=== PATIENT | female | born 1990 | race Caucasian/White ===

== ENCOUNTER 2021-10-09 10:59 | Outpatient (REF) | payer OTHER, SELFPAY ==
--- NOTE | ~2021-10-09 | XR_ITS ---
EXAMINATION: XR SINUSES CLINICAL INFORMATION: Left sinus pain. COMPARISON: 09/22/2012. TECHNIQUE: 4 FINDINGS: Paranasal sinuses appear clear without air-fluid levels. No fractures are identified. No radiodense foreign bodies. No interval change when compared to 09/22/2012. XR/XR sinus min 3V IMPRESSION: Unremarkable examination.
[2021-10-09 12:06] LABS: MANUAL DIFF FLAG NO
[2021-10-09 12:10] LABS: Basophils Percent Auto 0.6 % (0-2); Eosinophils Absolute Auto 0.1 X10*3/uL (0.0-0.4); Eosinophils Percent Auto 1.7 % (0-4); Hematocrit 39.6 % (37.0-47.0); Hemoglobin 13.3 g/dl (12.0-16.0); Imm Gran Abs Auto 0.01 X10*3/uL (0.00-0.03); Imm Gran Pct Auto 0.2 % (0.0-0.4); Lymphocytes Absolute Auto 1.7 X10*3/uL (1.2-4.9); Lymphocytes Percent Auto 32.7 % (20-40); Mean Corpuscular HGB Conc 33.6 g/dl (31.0-35.0); Mean Corpuscular Hemoglobin 33.3 pg (27.0-33.0); Mean Platelet Volume 9.9 fL (9.4-12.3); Monocytes Absolute Auto 0.4 X10*3/uL (0.1-1.2); Monocytes Percent Auto 7.3 % (2-11); Neutrophils Percent Auto 57.5 % (45-73); Platelet Count 249 X10*3/uL (160-400); Red Cell Distribution Width 11.9 % (11.0-16.0); White Blood Count 5.2 X10*3/uL (4.8-10.8)
[2021-10-09 12:35] LABS: Anion Gap 12 (12-20); Blood Urea Nitrogen 11 mg/dL (9-16); C Reactive Protein 0.09 mg/dL (< or = 0.50); Calcium 10.2 mg/dL (8.4-10.2); Carbon Dioxide 29 mmol/L (22-29); Chloride 101 mmol/L (96-108); Estimated Glomerular Filt Rate > 60; Glucose Random 98 mg/dL (60-115); Potassium 4.2 mmol/L (3.3-5.1); Sodium 138 mmol/L (135-145)
== END 2021-10-09 11:00 | disposition home or self-care (01) ==
LOC: HO.10HDL 10:59
PROVIDERS: Visit Provider Internal Medicine
DX: R51.9 Headache, unspecified (principal)
CPT/HCPCS: 36415; 70220; 80048; 85025; 86140

== ENCOUNTER 2021-11-20 09:23 | Outpatient (REF) | payer OTHER, SELFPAY ==
[2021-11-20 11:34] LABS: C Reactive Protein 0.09 mg/dL (< or = 0.50); Rheumatoid Factor 19.2 IU/mL (<15.0)
[2021-11-20 12:09] LABS: Erythrocyte Sedimentation Rate 5 MM/HR (0-20)
[2021-11-23 13:26] LABS: Proteinase 3 PR3 Antibodies <1.0 AI
[2021-11-23 13:57] LABS: Anti Nuclear Antibody Screen NEGATIVE (NEGATIVE)
== END 2021-11-20 09:24 | disposition home or self-care (01) ==
LOC: HO.HMGCLDS 09:23
PROVIDERS: Visit Provider Internal Medicine
DX: R21 Rash and other nonspecific skin eruption (principal)
CPT/HCPCS: 36415; 85652; 86021; 86038; 86039; 86140; 86431

== ENCOUNTER 2022-03-02 14:33 | Outpatient (REF) | payer OTHER, SELFPAY ==
[2022-03-02 14:47] LABS: MANUAL DIFF FLAG NO
[2022-03-02 15:12] LABS: Basophils Percent Auto 0.6 % (0-2); Eosinophils Absolute Auto 0.1 X10*3/uL (0.0-0.4); Eosinophils Percent Auto 2.2 % (0-4); Hemoglobin 12.4 g/dl (12.0-16.0); Imm Gran Abs Auto 0.01 X10*3/uL (0.00-0.03); Imm Gran Pct Auto 0.2 % (0.0-0.4); Lymphocytes Absolute Auto 1.8 X10*3/uL (1.2-4.9); Lymphocytes Percent Auto 35.6 % (20-40); Mean Corpuscular HGB Conc 33.5 g/dl (31.0-35.0); Mean Corpuscular Hemoglobin 32.8 pg (27.0-33.0); Mean Corpuscular Volume 97.9 fL (80.0-98.0); Mean Platelet Volume 9.5 fL (9.4-12.3); Monocytes Absolute Auto 0.4 X10*3/uL (0.1-1.2); Neutrophils Absolute Auto 2.7 x10*3/uL (2.0-8.3); Neutrophils Percent Auto 54.4 % (45-73); Platelet Count 245 X10*3/uL (160-400); Red Blood Count 3.78 X10*6/uL (4.20-5.50); Red Cell Distribution Width 12.2 % (11.0-16.0)
[2022-03-02 16:00] LABS: Alanine Aminotransferase 10 U/L (0-31); Albumin Level 4.8 g/dL (3.5-5.0); Alkaline Phosphatase 31 U/L (39-117); Anion Gap 13 (12-20); Aspartate Amino Transferase 18 U/L (5-31); Bilirubin Total 1.4 mg/dL (0.0-1.0); Blood Urea Nitrogen 11 mg/dL (9-16); C Reactive Protein 0.06 mg/dL (< or = 0.50); Calcium 9.5 mg/dL (8.4-10.2); Carbon Dioxide 28 mmol/L (22-29); Chloride 101 mmol/L (96-108); Estimated Glomerular Filt Rate > 60; Glucose Random 88 mg/dL (60-115); Potassium 4.2 mmol/L (3.3-5.1); Sodium 138 mmol/L (135-145); Total Protein 7.6 g/dL (6.5-8.0)
[2022-03-02 16:10] LABS: Free T4 (Free Thyroxine) 0.82 ng/dL (0.71-1.85); Thyroid Stimulating Hormone 6.15 uIU/mL (0.32-4.0)
[2022-03-02 16:26] LABS: Folate 14.4 ng/mL (> or = 4.0); Vitamin B12 415 pg/mL (200-900)
[2022-03-04 08:48] LABS: Lyme Abs Screen <0.90 index
[2022-03-04 09:42] LABS: Thyroid Peroxidase Antibodies 47 IU/mL (<9)
[2022-03-04 14:22] LABS: Calcium (PTHI) 9.5 mg/dL (8.6-10.2); PTHI 31 pg/mL (16-77)
== END 2022-03-02 14:34 | disposition home or self-care (01) ==
LOC: HO.LAB 14:33
PROVIDERS: PCP Internal Medicine; Visit Provider Internal Medicine
DX: M25.50 Pain in unspecified joint (principal); R42 Dizziness and giddiness
CPT/HCPCS: 36415; 80053; 82550; 82607; 82746; 83970; 84439; 84443; 85025; 86140; 86376; 86617; 86618

== ENCOUNTER 2022-03-05 11:00 | Outpatient (RCR) | payer OTHER, SELFPAY ==
[2022-02-24 09:55] VITALS: BP 122/78; PULSE 79; O2SAT 97
--- NOTE | 2022-02-24 12:08 | MHC.PT.EP ---
[facility] [place] Office [place] Office [place] Office [address] Onur Buitrago [address] [phone] F: [phone] F: [phone] F: [phone] F: [phone] Physical Therapy Plan of Care Date of Evaluation: Date of Surgery: Diagnosis: This is a 31 yo female presenting to skilled PT with a script for vertigo. Assessment: This is a 31 yo female presenting to skilled PT with a script for vertigo. Patient reports ongoing dizziness since May 2021 (she was in [place] when she felt imbalanced while walking). This doesn't seem to effect her daily life but is described as frustrating and annoying disruption. Symptoms come and go and are described as feeling off balance. She had an MRI of the sinuses which was negative and is awaiting CT scan. She has been to the neurologist as well as the eye doctor so far as well. Denies vomiting, nausea, CABA's. Her symptoms are sporadic, she reports it appears her L side is more effected as well. She is active and enjoys fitness classes. She does have some ringing in the ears, denies neck and back pain but has had some changes to vision that she describes as visual snow. Examination shows normal oculomotor tests except for horizontal saccades, (-) VBI B, and decreased cervical extension AROM (may benefit from further assessment of c-spine). She had 2 beats of nystagmus torsional in R hallpike that may have been nature focusing or nystagmus but I performed a treatment with R eleanor maneuver as a precautionary measure. She demos normal balance scores. 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 I am also recommending a trial of craniosacral tx to see if this is beneficial as well. Frequency and Duration: The patient will be seen 2x/wk for 4wks Short Term Goals: NA Corporate Learning Consultant Goals: I in HEP I in HEP No nystagmus or symptoms in any testing positions No LOB noted and normal scores on balance tests Return to walking, exercise routine without symptoms Treatment Plan: Modalities to reduce pain, spasms and effusion. Manual therapy to restore motion and function. Therapeutic exercise to improve strength and flexibility. Neuromuscular re-education for posture and balance. Therapeutic activities to return to functional activities of daily living. Electronically signed by: Graciela Yao PT Please sign and return to therapist. Thank you for your referral.
--- NOTE | 2022-03-31 11:50 | MHC.PT.DC ---
[facility] [place] Office [place] Office [place] Office [address] Onur Buitrago [address] [phone] F: [phone] F: [phone] F: [phone] F: [phone] Physical Therapy Discharge Report Diagnosis: This is a 31 yo female presenting to skilled PT with a script for vertigo. Date of Surgery: Date of Evaluation: 02/24/22 Date of Discharge: 03/31/22 Treatments to Date: 2 Cancellations to Date: 0 No Shows to Date: 0 Discharge Status: Achieved Goals Improved Function Independent with HEP Discharge Summary: Patient without any nystagmus or dizziness with testing positions. She was dx with low thyroid and has been started on a medication regiment which has improved the general fogginess. She also feels improvement with VOR exercises. She has not had any dizziness or issues for the past 2 weeks. I educated her to continue to let medication take effect. If any changes occur or symptoms increase again, she was instructed to call our office. Normal balance was noted with maximal challenges. Chart was kept open for 30 days and DC. Electronically signed by: Graciela Yao PT Please sign and return to therapist. Thank you for your referral.
== END 2022-03-31 11:50 | disposition home or self-care (01) ==
LOC: HO.PTCHIC 11:00
PROVIDERS: PCP Internal Medicine; Visit Provider Internal Medicine
DX: R42 Dizziness and giddiness (principal)
CPT/HCPCS: 95992; 97112; 97161

== ENCOUNTER 2022-05-19 14:24 | Outpatient (REF) | payer OTHER, SELFPAY ==
[2022-05-19 16:56] LABS: Appearance Urine Clear; Color Urine Yellow; Glucose Urine UA Negative (Negative); Leukocyte Esterase Urine Negative (Negative); Nitrite Urine Negative (Negative); Specific Gravity - Urine <= 1.005 (1.005-1.025); Urine Blood Negative (Negative); Urine Ketones Negative (Negative); Urine Protein Negative (Neg-Trace)
[2022-05-19 17:05] LABS: C Reactive Protein 0.39 mg/dL (< or = 0.50)
[2022-05-19 17:39] LABS: Erythrocyte Sedimentation Rate 4 MM/HR (0-20)
[2022-05-25 15:42] LABS: Anti Nuclear Antibody Pattern Nuclear, Speckled; Anti Nuclear Antibody Screen POSITIVE (NEGATIVE); Anti Nuclear Antibody Titer 1:40 titer
== END 2022-05-19 14:25 | disposition home or self-care (01) ==
LOC: HO.HMGCLDS 14:24
PROVIDERS: PCP Internal Medicine; Visit Provider Internal Medicine
DX: R30.0 Dysuria (principal); M25.50 Pain in unspecified joint
CPT/HCPCS: 36415; 81003; 85652; 86038; 86039; 86140; 87086

== ENCOUNTER 2022-09-09 11:16 | Outpatient (REF) | payer OTHER, SELFPAY ==
[2022-09-09 14:32] LABS: Alanine Aminotransferase 14 U/L (0-31); Albumin Level 4.7 g/dL (3.5-5.0); Alkaline Phosphatase 33 U/L (39-117); Aspartate Amino Transferase 21 U/L (5-31); Bilirubin Direct 0.3 mg/dL (0.0-0.5); Bilirubin Total 1.1 mg/dL (0.0-1.0); Total Protein 7.5 g/dL (6.5-8.0)
[2022-09-09 14:58] LABS: Free T4 (Free Thyroxine) 0.96 ng/dL (0.71-1.85); Vitamin D 25-OH Total 44.2 ng/mL (>30)
== END 2022-09-09 11:17 | disposition home or self-care (01) ==
LOC: HO.HMGCLDS 11:16
PROVIDERS: PCP Internal Medicine; Visit Provider Internal Medicine
DX: E03.9 Hypothyroidism, unspecified (principal)
CPT/HCPCS: 36415; 80076; 82306; 84439; 84443

== ENCOUNTER 2022-09-23 17:49 | Outpatient (REF) | payer OTHER, SELFPAY ==
[2022-09-24 14:09] LABS: Adenovirus F 40/41 Not Detected (Not Detect.); Astrovirus Not Detected (Not Detect.); Campylobacter Not Detected (Not Detect.); Cyclospora cayetanensis Not Detected (Not Detect.); E. coli EAEC Not Detected (Not Detect.); E. coli EPEC Not Detected (Not Detect.); E. coli ETEC Not Detected (Not Detect.); E. coli STEC Not Detected (Not Detect.); Entamoeba histolytica Not Detected (Not Detect.); Giardia lamblia Not Detected (Not Detect.); Norovirus GI/GII Not Detected (Not Detect.); Plesiomonas shigelloides Not Detected (Not Detect.); Rotavirus A Not Detected (Not Detect.); Salmonella Not Detected (Not Detect.); Sapovirus Not Detected (Not Detect.); Shigella sp./EIEC Not Detected (Not Detect.); Vibrio Not Detected (Not Detect.); Vibrio Cholerae Not Detected (Not Detect.); Yersinia enterocolitica Not Detected (Not Detect.)
[2022-09-24 14:28] LABS: Cryptosporidium Detected (Not Detect.)
== END 2022-09-23 17:50 | disposition home or self-care (01) ==
LOC: HO.LNP 17:49
PROVIDERS: Visit Provider Internal Medicine
DX: R19.7 Diarrhea, unspecified (principal)
CPT/HCPCS: 87507

== ENCOUNTER 2022-09-30 18:24 | Outpatient (REF) | payer OTHER, SELFPAY | END 2022-09-30 18:25 | disposition home or self-care (01) | LOC: HO.LNP 18:24 | PROVIDERS: Visit Provider Internal Medicine | DX: Z13.89 Encounter for screening for other disorder (principal) | CPT/HCPCS: 87507 ==

== ENCOUNTER 2022-10-06 16:04 | Outpatient (REF) | payer OTHER, SELFPAY ==
[2022-10-07 13:42] LABS: Campylobacter Not Detected (Not Detect.); Plesiomonas shigelloides Not Detected (Not Detect.); Salmonella Not Detected (Not Detect.)
[2022-10-07 13:43] LABS: Adenovirus F 40/41 Not Detected (Not Detect.); Astrovirus Not Detected (Not Detect.); Cyclospora cayetanensis Not Detected (Not Detect.); E. coli EAEC Not Detected (Not Detect.); E. coli EPEC Not Detected (Not Detect.); E. coli ETEC Not Detected (Not Detect.); E. coli STEC Not Detected (Not Detect.); Entamoeba histolytica Not Detected (Not Detect.); Giardia lamblia Not Detected (Not Detect.); Norovirus GI/GII Not Detected (Not Detect.); Rotavirus A Not Detected (Not Detect.); Sapovirus Not Detected (Not Detect.); Shigella sp./EIEC Not Detected (Not Detect.); Vibrio Not Detected (Not Detect.); Vibrio Cholerae Not Detected (Not Detect.); Yersinia enterocolitica Not Detected (Not Detect.)
== END 2022-10-06 16:05 | disposition home or self-care (01) ==
LOC: HO.LNP 16:04
PROVIDERS: Visit Provider Internal Medicine
DX: R19.7 Diarrhea, unspecified (principal)
CPT/HCPCS: 87507

== ENCOUNTER 2023-02-07 08:00 | Outpatient (RCR) | payer OTHER, SELFPAY ==
--- NOTE | 2023-03-11 11:18 | MHC.PT.DC ---
[facility] [place] Office [place] Office [place] Office [address] [phone] F: [phone] F: [phone] F: [phone] F: [phone] Physical Therapy Discharge Report Diagnosis: This is a 32 yo female presenting to skilled PT with a script for L SIJ pain. Date of Surgery: Date of Evaluation: 01/12/23 Date of Discharge: 03/11/23 Treatments to Date: 4 Cancellations to Date: 0 No Shows to Date: 0 Discharge Status: Discharge Summary: Patient was improving with PT but was still not back to running yet. She called our office and cancelled remaining visits. I kept her chart open for 30 days and then DC'd when she did not call to reschedule. Electronically signed by: Graciela Yao, PT Please sign and return to therapist. Thank you for your referral.
== END 2023-03-11 11:19 | disposition home or self-care (01) ==
LOC: HO.PTCHIC 08:00
PROVIDERS: PCP Internal Medicine; Visit Provider Internal Medicine
DX: M99.04 Segmental and somatic dysfunction of sacral region (principal)
CPT/HCPCS: 97110; 97140; 97161

== ENCOUNTER 2023-02-25 09:27 | Outpatient (REF) | payer OTHER, SELFPAY ==
[2023-02-25 10:33] LABS: MANUAL DIFF FLAG NO
[2023-02-25 10:34] LABS: Eosinophils Absolute Auto 0.1 X10*3/uL (0.0-0.4); Eosinophils Percent Auto 3.2 % (0-4); Hematocrit 36.7 % (37.0-47.0); Hemoglobin 12.4 g/dl (12.0-16.0); Imm Gran Abs Auto 0.01 X10*3/uL (0.00-0.03); Imm Gran Pct Auto 0.2 % (0.0-0.4); Lymphocytes Absolute Auto 1.7 X10*3/uL (1.2-4.9); Lymphocytes Percent Auto 41.9 % (20-40); Mean Corpuscular HGB Conc 33.8 g/dl (31.0-35.0); Mean Corpuscular Hemoglobin 32.9 pg (27.0-33.0); Mean Corpuscular Volume 97.3 fL (80.0-98.0); Mean Platelet Volume 9.7 fL (9.4-12.3); Monocytes Absolute Auto 0.3 X10*3/uL (0.1-1.2); Monocytes Percent Auto 7.8 % (2-11); Neutrophils Absolute Auto 1.9 x10*3/uL (2.0-8.3); Neutrophils Percent Auto 45.9 % (45-73); Platelet Count 247 X10*3/uL (160-400); Red Blood Count 3.77 X10*6/uL (4.20-5.50); Red Cell Distribution Width 11.9 % (11.0-16.0); White Blood Count 4.1 X10*3/uL (4.8-10.8)
[2023-02-25 10:59] LABS: Alanine Aminotransferase 15 U/L (0-31); Albumin Level 4.7 g/dL (3.5-5.0); Alkaline Phosphatase 31 U/L (39-117); Anion Gap 10 (12-20); Aspartate Amino Transferase 21 U/L (5-31); Bilirubin Total 1.2 mg/dL (0.0-1.0); Blood Urea Nitrogen 17 mg/dL (9-16); C Reactive Protein < 0.10 mg/dL (< or = 0.50); Calcium 9.6 mg/dL (8.4-10.2); Carbon Dioxide 29 mmol/L (22-29); Chloride 102 mmol/L (96-108); Estimated Glomerular Filt Rate > 60; Glucose Random 92 mg/dL (60-115); Potassium 3.6 mmol/L (3.3-5.1); Sodium 137 mmol/L (135-145); Total Protein 7.5 g/dL (6.5-8.0)
[2023-02-25 12:23] LABS: Erythrocyte Sedimentation Rate 4 MM/HR (0-20)
[2023-02-25 13:39] LABS: Campylobacter Not Detected (Not Detect.); Plesiomonas shigelloides Not Detected (Not Detect.)
[2023-02-25 13:40] LABS: Adenovirus F 40/41 Not Detected (Not Detect.); Astrovirus Not Detected (Not Detect.); Cryptosporidium Not Detected (Not Detect.); Cyclospora cayetanensis Not Detected (Not Detect.); E. coli EAEC Not Detected (Not Detect.); E. coli EPEC Not Detected (Not Detect.); E. coli ETEC Not Detected (Not Detect.); E. coli STEC Not Detected (Not Detect.); Entamoeba histolytica Not Detected (Not Detect.); Giardia lamblia Not Detected (Not Detect.); Norovirus GI/GII Not Detected (Not Detect.); Rotavirus A Not Detected (Not Detect.); Salmonella Not Detected (Not Detect.); Sapovirus Not Detected (Not Detect.); Shigella sp./EIEC Not Detected (Not Detect.); Vibrio Not Detected (Not Detect.); Vibrio Cholerae Not Detected (Not Detect.)
[2023-02-25 14:33] LABS: Yersinia enterocolitica Detected (Not Detect.)
== END 2023-02-25 09:28 | disposition home or self-care (01) ==
LOC: HO.10HDL 09:27
PROVIDERS: Visit Provider Internal Medicine
DX: R10.9 Unspecified abdominal pain (principal); R19.7 Diarrhea, unspecified
CPT/HCPCS: 36415; 80053; 82550; 85025; 85652; 86140; 87507

== ENCOUNTER 2023-03-16 10:17 | Outpatient (REF) | payer OTHER, SELFPAY ==
[2023-03-16 15:20] LABS: Campylobacter Not Detected (Not Detect.); Plesiomonas shigelloides Not Detected (Not Detect.); Salmonella Not Detected (Not Detect.); Vibrio Not Detected (Not Detect.); Vibrio Cholerae Not Detected (Not Detect.); Yersinia enterocolitica Not Detected (Not Detect.)
[2023-03-16 15:21] LABS: Adenovirus F 40/41 Not Detected (Not Detect.); Astrovirus Not Detected (Not Detect.); Cryptosporidium Not Detected (Not Detect.); Cyclospora cayetanensis Not Detected (Not Detect.); E. coli EAEC Not Detected (Not Detect.); E. coli EPEC Not Detected (Not Detect.); E. coli ETEC Not Detected (Not Detect.); E. coli STEC Not Detected (Not Detect.); Entamoeba histolytica Not Detected (Not Detect.); Giardia lamblia Not Detected (Not Detect.); Rotavirus A Not Detected (Not Detect.); Sapovirus Not Detected (Not Detect.); Shigella sp./EIEC Not Detected (Not Detect.)
[2023-03-16 15:24] LABS: Norovirus GI/GII Detected (Not Detect.)
== END 2023-03-16 10:18 | disposition home or self-care (01) ==
LOC: HO.LNP 10:17
PROVIDERS: Visit Provider Internal Medicine
DX: Z87.19 Personal history of other diseases of the digestive system (principal)
CPT/HCPCS: 87507

== ENCOUNTER 2023-03-29 13:27 | Outpatient (REF) | payer OTHER, SELFPAY ==
[2023-03-29 15:29] LABS: Campylobacter Not Detected (Not Detect.); Cryptosporidium Not Detected (Not Detect.); Cyclospora cayetanensis Not Detected (Not Detect.); E. coli EAEC Not Detected (Not Detect.); E. coli EPEC Not Detected (Not Detect.); E. coli ETEC Not Detected (Not Detect.); E. coli STEC Not Detected (Not Detect.); Entamoeba histolytica Not Detected (Not Detect.); Plesiomonas shigelloides Not Detected (Not Detect.); Salmonella Not Detected (Not Detect.); Shigella sp./EIEC Not Detected (Not Detect.); Vibrio Not Detected (Not Detect.); Vibrio Cholerae Not Detected (Not Detect.); Yersinia enterocolitica Not Detected (Not Detect.)
[2023-03-29 15:30] LABS: Adenovirus F 40/41 Not Detected (Not Detect.); Astrovirus Not Detected (Not Detect.); Giardia lamblia Not Detected (Not Detect.)
[2023-03-29 16:34] LABS: Norovirus GI/GII Detected (Not Detect.); Rotavirus A Not Detected (Not Detect.); Sapovirus Not Detected (Not Detect.)
== END 2023-03-29 13:28 | disposition home or self-care (01) ==
LOC: HO.LNP 13:27
PROVIDERS: Visit Provider Internal Medicine
DX: R19.7 Diarrhea, unspecified (principal)
CPT/HCPCS: 87507

== ENCOUNTER 2023-04-13 08:39 | Outpatient (REF) | payer OTHER, SELFPAY ==
[2023-04-13 10:11] LABS: MANUAL DIFF FLAG NO
[2023-04-13 10:15] LABS: Basophils Percent Auto 0.8 % (0-2); Eosinophils Absolute Auto 0.1 X10*3/uL (0.0-0.4); Eosinophils Percent Auto 2.6 % (0-4); Hematocrit 36.1 % (37.0-47.0); Hemoglobin 12.2 g/dl (12.0-16.0); Imm Gran Abs Auto 0.01 X10*3/uL (0.00-0.03); Imm Gran Pct Auto 0.2 % (0.0-0.4); Mean Corpuscular HGB Conc 33.8 g/dl (31.0-35.0); Mean Corpuscular Hemoglobin 33.3 pg (27.0-33.0); Mean Corpuscular Volume 98.6 fL (80.0-98.0); Mean Platelet Volume 9.9 fL (9.4-12.3); Monocytes Absolute Auto 0.4 X10*3/uL (0.1-1.2); Monocytes Percent Auto 7.5 % (2-11); Neutrophils Absolute Auto 2.4 x10*3/uL (2.0-8.3); Neutrophils Percent Auto 48.9 % (45-73); Platelet Count 234 X10*3/uL (160-400); Red Blood Count 3.66 X10*6/uL (4.20-5.50); Red Cell Distribution Width 12.5 % (11.0-16.0)
[2023-04-13 10:37] LABS: Alanine Aminotransferase 15 U/L (0-31); Albumin Level 4.5 g/dL (3.5-5.0); Alkaline Phosphatase 31 U/L (39-117); Anion Gap 12 (12-20); Aspartate Amino Transferase 21 U/L (5-31); Bilirubin Total 0.9 mg/dL (0.0-1.0); Blood Urea Nitrogen 9 mg/dL (9-16); C Reactive Protein 0.11 mg/dL (< or = 0.50); Calcium 9.4 mg/dL (8.4-10.2); Carbon Dioxide 26 mmol/L (22-29); Chloride 107 mmol/L (96-108); Estimated Glomerular Filt Rate > 60; Glucose Random 98 mg/dL (60-115); Potassium 3.8 mmol/L (3.3-5.1); Sodium 141 mmol/L (135-145); Total Protein 7.3 g/dL (6.5-8.0)
== END 2023-04-13 08:40 | disposition home or self-care (01) ==
LOC: HO.10HDL 08:39
PROVIDERS: Visit Provider Internal Medicine
DX: R10.9 Unspecified abdominal pain (principal); R19.7 Diarrhea, unspecified
CPT/HCPCS: 36415; 80053; 82550; 85025; 86140

== ENCOUNTER 2023-04-15 09:42 | Outpatient (REF) | payer OTHER, SELFPAY ==
[2023-04-15 10:41] LABS: CDiff Gene PCR NEGATIVE (Negative)
== END 2023-04-15 09:43 | disposition home or self-care (01) ==
LOC: HO.LNP 09:42
PROVIDERS: Visit Provider Internal Medicine
DX: R19.7 Diarrhea, unspecified (principal); R10.9 Unspecified abdominal pain
CPT/HCPCS: 87493

== ENCOUNTER 2023-05-05 12:18 | Outpatient (REF) | payer OTHER, SELFPAY ==
--- NOTE | ~2023-05-05 | XR_ITS ---
EXAMINATION: XR SINUSES CLINICAL INFORMATION: Sinusitis COMPARISON: None available. TECHNIQUE: 4 views of the sinuses were obtained. FINDINGS: Paranasal sinuses appear clear without air-fluid levels. No fractures are identified. No radiodense foreign bodies. XR/XR sinus min 3V IMPRESSION: Unremarkable examination.
--- NOTE | ~2023-05-05 | XR_ITS ---
EXAMINATION: XR CHEST CLINICAL INFORMATION: Cough. COMPARISON: None available. TECHNIQUE: 2 views of the chest were obtained. FINDINGS: The lungs are well expanded. No focal consolidation. No pleural effusion. Cardiac silhouette is within normal limits. XR/XR chest 2V IMPRESSION: No acute abnormality.
== END 2023-05-05 12:19 | disposition home or self-care (01) ==
LOC: HO.HMGCX 12:18
PROVIDERS: PCP Internal Medicine; Visit Provider Internal Medicine
DX: R05.9 Cough, unspecified (principal); J32.9 Chronic sinusitis, unspecified
CPT/HCPCS: 70220; 71046

== ENCOUNTER 2023-06-09 08:52 | Emergency (ER) | payer BC, SELFPAY ==
--- NOTE | ~2023-06-09 | CT_ITS ---
EXAMINATION: CT ABDOMEN AND PELVIS WITH CONTRAST CLINICAL INFORMATION: Lower abdominal pain. Diarrhea. COMPARISON: 01/17/2012 TECHNIQUE: Multidetector volumetric images were obtained from the superior aspect of the liver through the pubic symphysis following administration 85 mL of Omnipaque 350 intravenous contrast. Sagittal and coronal reformatted images were obtained on the technologist's workstation. Oral contrast: No This CT examination was performed using dose optimization techniques as appropriate, variously including the following: *Automated exposure control *Adjustment of mA and/or kV according to patient size (this includes techniques or standardized protocols for targeted exams where dose is matched to indication/reason for exam; i.e. extremities or head) *Use of iterative reconstruction technique DLP: 482 mGy-cm FINDINGS: LUNG BASES: The visualized lung bases are unremarkable. LIVER, GALLBLADDER, AND BILIARY TREE: The liver is normal in size, shape, and attenuation. No suspicious hepatic lesion or biliary ductal dilatation is present. The gallbladder is unremarkable with no evidence of radiopaque gallstones, gallbladder wall thickening, or obvious pericholecystic inflammatory changes. PANCREAS: Unremarkable. SPLEEN: Unremarkable. ADRENAL GLANDS: Unremarkable. KIDNEYS AND URETERS: The kidneys are normal in size, shape, and attenuation. No hydronephrosis, hydroureter, or calculi seen. No perinephric stranding. BLADDER: Unremarkable. GASTROINTESTINAL TRACT: Small and large bowel loops are of normal caliber. Moderate fecal retention in the rectosigmoid colon. No small bowel obstruction. ABDOMINAL WALL: No significant hernia is appreciated. LYMPH NODES: No bulky abdominal or pelvic adenopathy. VASCULAR: Normal caliber abdominal aorta. PELVIC VISCERA: Uterus is anteverted. Involuting corpus luteum in the left ovary. OSSEOUS STRUCTURES: No destructive bone lesions. CT/CT abdomen pelvis w IV con IMPRESSION: No acute abnormality in the abdomen or pelvis.
[2023-06-09 09:01] VITALS: BP 139/95; PULSE 80; RESP 14; TEMP 36.9; O2SAT 98; BMI 24.1
--- NOTE | 2023-06-09 09:22 | ED.ABDPAIN ---
HPI - Abdominal Pain General Chief Complaint: Abdominal Pain Stated Complaint: abd pain Time Seen by Provider: 06/09/23 09:20 Source: patient Mode of arrival: ambulatory Limitations: no limitations History of Present Illness HPI narrative: 33 yo female with hx of travel this past year in september where she got a pretty severe GI illness then traveled again in December resulting in yersinia infection requiring 10 days of cipro treatment. Since then she has lower abdominal cramping and intermittent bouts of diarrhea/constipation. Post prandial bloating. No fevers, no weight loss, sweats. She was seeing her PCP but no probiotics, diet changes, elimination diets just referred to GI and no appointment until October. No fam hx of UC or Crohns MD elicited complaint: abdominal pain Pertinent past history: other (travel) Onset (ago): month(s) (6+) Pain Consistency: intermittent Location: periumbilical, RLQ and LLQ Severity: moderate Quality: cramping Radiation: none Migration to: no migration Exacerbating factors: eating Relieving factors: nothing Context: foreign travel Associated symptoms: diarrhea and constipation Related Data Allergies Allergy/AdvReac Type Severity Reaction Status Date / Time No Known Allergies Allergy Unverified 04/24/20 17:12 Review of Systems Review of Systems Constitutional : No Weight loss, No Fever, No Chills ENT/Mouth : No sore throat, No Rhinorrhea Eyes: No Swelling, No Redness Cardiovascular : No Chest Pain, No SOB, NoEdema Respiratory : No Cough, No Sputum, No Wheezing Gastrointestinal : no Nausea, no Vomiting, positive Diarrhea, positive abdominal Pain, No Hematochezia, No Melena, pos constipation Genitourinary : No Dysuria, No Urinary Frequency, No Hematuria, No Urgency Musculoskeletal : No joint pain, No Myalgias, No Joint Swelling Skin : No Skin Lesions, No rash Neuro : No Weakness, No Numbness, No Dizziness, No Headache Psych : No Anxiety/Panic, No Depression Heme/Lymph: No Bruising, No Lymphadenopathy Endocrine : No Polyuria, No Polydipsia All other systems reviewed and are negative. [facility] Past Medical History Attestation statement: The following information was validated with the patient. Medical History Enteritis, Yersinia enterocolitica Surgical History H/O hernia repair Social History Social History (Updated 06/09/23 @ 09:30 by Camille Cardoso DO) Alcohol intake: current Patient Tobacco Use Status: Never used Tobacco Smoked in Last 30 Days: No Use of substances other than those prescribed or required for medical reasons: No Advance Directives: No Patient : No Physical Exam ED Vital Signs: Vital Signs - 24 hr 06/09/23 09:01 06/09/23 10:38 Temperature 98.4 F Pulse Rate 80 60 Respiratory Rate 14 14 Blood Pressure 139/95 H 99/58 L Pulse Oximetry 98 98 Oxygen Delivery Method Room Air Room Air BMI result Body Mass Index 24.1 Appearance: Alert. Oriented X3. No acute distress. Anxious Eyes: Pupils equal, round and reactive to light. ENT: Pharynx normal. Neck: Normal inspection. Neck supple. CVS: Normal heart rate and rhythm. Pulses normal. Respiratory: No respiratory distress. Breath sounds normal. Abdomen: Soft and mild lower abdominal ttp but no rebound or guarding Skin: Skin warm and dry. Normal skin color. Normal skin turgor. Extremities: No lower extremity edema. No calf ttp Neuro: Oriented X 3. No motor deficit. No sensory deficit. Medical Decision Making Medical Decision Making [facility] Narrative: 33 yo female with hx of traveler's dysentery and yersinia who completed cipro x 10 days now with intermittent persistent diarrhea/constipation and post prandial bloating with no fevers, rectal bleeding, weight loss. At this time no fam hx of inflammatory bowel disease. She has a good appetite. Will obtain basic labs, CT scan for colitis/mass. IVF ordered. Differential Diagnosis Differential Diagnoses: The differential diagnosis associated with the presentation includes colitis, IBS, inflammatory bowel disease Admission/Observation Consideration of admission/observation: Escalation of care including admission/observation considered labs and CT scan no acute findings can follow up with GI Lab Data [facility] Lab Attestation statement: I reviewed the patient's lab results. no urinary symptoms doubt UTI 06/09/23 09:21 06/09/23 09:21 Labs: Lab Results 06/09/23 06/09/23 Range/Units 09:21 10:09 WBC 5.2 (4.8-10.8) X10*3/uL RBC 3.88 L (4.20-5.50) X10*6/uL Hgb 12.7 (12.0-16.0) g/dl Hct 37.5 (37.0-47.0) % MCV 96.6 (80.0-98.0) fL MCH 32.7 (27.0-33.0) pg MCHC 33.9 (31.0-35.0) g/dl RDW 12.4 (11.0-16.0) % Plt Count 253 (160-400) X10*3/uL MPV 8.9 L (9.4-12.3) fL Immature Gran % (Auto) 0.2 (0.0-0.4) % Neut % (Auto) 45.0 (45-73) % Lymph % (Auto) 40.6 H (20-40) % [place] % (Auto) 10.1 (2-11) % Eos % (Auto) 3.3 (0-4) % Baso % (Auto) 0.8 (0-2) % Lymph # (Auto) 2.1 (1.2-4.9) X10*3/uL [place] # (Auto) 0.5 (0.1-1.2) X10*3/uL Eos # (Auto) 0.2 (0.0-0.4) X10*3/uL Baso # (Auto) 0.0 (0.0-0.2) X10*3/uL Abs Immat Gran (auto) 0.01 (0.00-0.03) X10*3/uL Absolute Neuts (auto) 2.3 (2.0-8.3) x10*3/uL Absolute Nucleated RBC 0.000 (0.0-0.012) X10*3/uL Nucleated RBC % (auto) 0.0 (0.0-0.2) /100WBC Sodium 138 (135-145) mmol/L Potassium 4.2 (3.3-5.1) mmol/L Chloride 107 (96-108) mmol/L Carbon Dioxide 26 (22-29) mmol/L Anion Gap 9 L (12-20) BUN 11 (9-16) mg/dL Creatinine 0.78 (0.5-1.4) mg/dL Estim Creat Clear Calc 94.2 Estimated GFR > 60 Random Glucose 105 (60-115) mg/dL Calcium 9.6 (8.4-10.2) mg/dL Magnesium 2.1 (1.6-2.6) mg/dL Total Bilirubin 0.6 (0.0-1.0) mg/dL Direct Bilirubin 0.2 (0.0-0.5) mg/dL AST 19 (5-31) U/L ALT 10 (0-31) U/L Alkaline Phosphatase 31 L (39-117) U/L C-Reactive Protein < 0.10 (< or = 0.50) mg/dL Total Protein 7.5 (6.5-8.0) g/dL Albumin 4.4 (3.5-5.0) g/dL Lipase 33 (8-78) U/L Beta HCG, Quant < 2 mIU/mL Urine Color Yellow Urine Appearance Clear Urine pH 6.5 (5.0-9.0) Ur Specific [place] 1.010 (1.005-1.025) Urine Protein Negative (Neg-Trace) mg/dL Urine Glucose (UA) Negative (Negative) mg/dL Urine Ketones Negative (Negative) mg/dL Urine Blood Negative (Negative) Urine Nitrite Negative (Negative) Ur Leukocyte Esterase Small (1+) H (Negative) Urine RBC 0-2 (0-2) /HPF Urine WBC 6-10 H (0-5) /HPF Ur Squamous Epith Cells 3-5 (0-2) /HPF Urine Bacteria 2+ (None Seen) Hyaline Casts 0-2 (0-2) /LPF Independent Interpretation I performed an independent interpretation of an: CT Scan Radiology Impression Discussion of test interpretation with radiology: I have reviewed the radiologist's reading. Independent Historian Clinical information obtained from an independent historian. History obtained from or confirmed by: Parent Medications Administered Discontinued Medications Generic Name Dose Route Start Last Admin Trade Name Freq PRN Reason Stop Dose Admin Iohexol 100 ml 06/09/23 10:32 06/09/23 10:32 Iohexol 350 Mg/Ml 100 Ml Infus..Btl IV 06/09/23 10:33 85 ml ONCE ONE Administration Discharge Plan Discharge Clinical Impression: Abdominal pain Qualifiers: Abdominal location: lower abdomen, unspecified Qualified Code(s): R10.30 - Lower abdominal pain, unspecified Patient Disposition: Home, Self-Care Instructions: Abdominal Pain (ED) Additional Instructions: keep a food journal and monitor what triggers your symptoms. you can start eliminating from your diet to see if that helps then slowly adding it back in. return for worsening pain, fevers, vomiting, black or bloody stools. take a probiotic resolving small L ovarian cyst Referrals: Arielle Benjamin MD [Physician] - (GI doctor - can follow up and call office pending your referral) Stand Alone Forms: Work/School Release
[2023-06-09 09:27] LABS: MANUAL DIFF FLAG NO
[2023-06-09 09:28] LABS: Basophils Percent Auto 0.8 % (0-2); Eosinophils Absolute Auto 0.2 X10*3/uL (0.0-0.4); Eosinophils Percent Auto 3.3 % (0-4); Hematocrit 37.5 % (37.0-47.0); Hemoglobin 12.7 g/dl (12.0-16.0); Imm Gran Abs Auto 0.01 X10*3/uL (0.00-0.03); Imm Gran Pct Auto 0.2 % (0.0-0.4); Lymphocytes Absolute Auto 2.1 X10*3/uL (1.2-4.9); Lymphocytes Percent Auto 40.6 % (20-40); Mean Corpuscular HGB Conc 33.9 g/dl (31.0-35.0); Mean Corpuscular Hemoglobin 32.7 pg (27.0-33.0); Mean Corpuscular Volume 96.6 fL (80.0-98.0); Mean Platelet Volume 8.9 fL (9.4-12.3); Monocytes Absolute Auto 0.5 X10*3/uL (0.1-1.2); Monocytes Percent Auto 10.1 % (2-11); Neutrophils Absolute Auto 2.3 x10*3/uL (2.0-8.3); Platelet Count 253 X10*3/uL (160-400); Red Blood Count 3.88 X10*6/uL (4.20-5.50); Red Cell Distribution Width 12.4 % (11.0-16.0); White Blood Count 5.2 X10*3/uL (4.8-10.8)
[2023-06-09 09:42] LABS: Alanine Aminotransferase 10 U/L (0-31); Albumin Level 4.4 g/dL (3.5-5.0); Alkaline Phosphatase 31 U/L (39-117); Anion Gap 9 (12-20); Aspartate Amino Transferase 19 U/L (5-31); Bilirubin Direct 0.2 mg/dL (0.0-0.5); Bilirubin Total 0.6 mg/dL (0.0-1.0); Blood Urea Nitrogen 11 mg/dL (9-16); C Reactive Protein < 0.10 mg/dL (< or = 0.50); Calcium 9.6 mg/dL (8.4-10.2); Carbon Dioxide 26 mmol/L (22-29); Chloride 107 mmol/L (96-108); Creatinine Clr Calc Pharmacy 94.2; Estimated Glomerular Filt Rate > 60; Glucose Random 105 mg/dL (60-115); Lipase 33 U/L (8-78); Magnesium 2.1 mg/dL (1.6-2.6); Potassium 4.2 mmol/L (3.3-5.1); Sodium 138 mmol/L (135-145); Total Protein 7.5 g/dL (6.5-8.0)
[2023-06-09 09:49] LABS: HCG Quantitative < 2 mIU/mL
[2023-06-09 10:15] LABS: Appearance Urine Clear; Color Urine Yellow; Glucose Urine UA Negative (Negative); Leukocyte Esterase Urine Small (1+) (Negative); Nitrite Urine Negative (Negative); PH 6.5 (5.0-9.0); UMIC TRIGGER UACC YES; Urine Blood Negative (Negative); Urine Ketones Negative (Negative); Urine Protein Negative (Neg-Trace)
[2023-06-09 10:18] LABS: Bacteria Urine 2+ (None Seen); Hyaline Casts Urine 0-2 /LPF (0-2); RBC Urine 0-2 /HPF (0-2); UACC Culture Trigger YES
[2023-06-09] MEDS: iohexoL 350 MG/ML 100 ML INFUS..BTL IV (10:32)
[2023-06-09 10:38] VITALS: BP 99/58; PULSE 60; RESP 14; O2SAT 98
== END 2023-06-09 11:52 | disposition home or self-care (01) ==
PROVIDERS: Emergency Provider Emergency Medicine; PCP Internal Medicine
DX: R10.31 Right lower quadrant pain (principal); R10.32 Left lower quadrant pain; K59.00 Constipation, unspecified; Z79.899 Other long term (current) drug therapy
CPT/HCPCS: 36415; 74177; 80048; 80076; 81001; 83690; 83735; 84702; 85025; 86140; 87086; 99284; Q9967

== ENCOUNTER 2023-10-11 08:19 | Outpatient (AMB) | payer BC, SELFPAY ==
--- NOTE | 2023-10-11 08:25 | A.OFFVIS_ITS ---
Intake Vital Signs 10/11/23 08:26 Height 5 ft 6 in Weight 150 lb BMI 24.2 BP 111/65 Blood Pressure Location Lt brachial Position Sitting Pulse 63 Intake Visit Reasons: Abdominal labs + Norovirus Intake Note: Carlita presets in the office as a new patient for abnormal labs and norovirus. CC: She states that she went to [place] where she got a protozoa - she got another food bacteria 6 months after that. She states that she had labs positive for norovirus. She states that she went to the ED 2 months after because she felt funny. Allergies No Known Allergies Allergy (Unverified 10/11/23 08:28) HPI Abdominal labs + Norovirus HPI Details 33-year-old female with past medical his tory of norovirus, is here today for initial consultation. Patient states that she went on a golf tournament to [place] last summer and when she got back home she had Protozoa infection. Couple months later she had norovirus and was seen in the ER. Patient experienced diarrhea. She continues to have loose stools, denies any fever or chills. Patient reports that she has postprandial loose stools, however feels like she is constipated. Patient denies melena, hematochezia, unintentional weight loss or ribbon like stools. Patient denies any dyspepsia, dysphagia or odynophagia. Patient denies any issues with anesthesia in the past. No history of sleep apnea. Not on any anticoagulation medications. Patient denies any fever or chills. Denies any mucus in her stool. [facility] Medical History Enteritis, Yersinia enterocolitica Surgical History H/O hernia repair Family History (Updated 10/11/23 @ 08:28 by REDDY Marquez) Maternal Grandmother Colon cancer Paternal Grandfather Colon polyp Social History Alcohol intake: current Patient Tobacco Use Status: Never used Tobacco Review of Systems Const Denies weight gain and Denies weight loss ENT Reports no additional complaints, Denies dysphagia and Denies odynophagia Card Reports no additional complaints Resp Reports no additional complaints GI Denies abdominal pain, Denies belching, Denies melena, Denies bloating, Reports constipation, Denies dysphagia, Denies excessive flatus, Denies dyspepsia, Denies heartburn, Denies diarrhea, Reports loose stools, Denies nausea, Denies odynophagia and Denies vomiting Reports no additional complaints Musc Reports no additional complaints Neuro Reports no additional complaints Psych Reports no additional complaints Endo Reports no additional complaints Physical Exam Vital Signs: Last Vital Signs Pulse 63 10/11/23 08:26 BP 111/65 10/11/23 08:26 BMI result Body Mass Index 24.2 Const General: healthy appearing, no acute distress and well developed Nutritional Appearance: well nourished Orientation/consciousness: patient oriented x3 Resp Effort & Inspection: normal respiratory effort, able to speak in complete sentences, no tracheal deviation and symmetric chest movement Auscultation: clear to auscultation bilaterally Cardio Rate: regular rate GI Inspection: Yes normal to inspection and No distended Palpation (GI): Soft to palpation, not firm, nontender and No hepatosplenomegaly present Auscultation: normal bowel sounds General: Yes no CVA tenderness Back/Spine/Pelvis Back: no CVA tenderness Skin General skin exam: elasticity normal, turgor normal and dry skin Neuro General: patient oriented x3 Psych Appearance: grossly normal Mental Status: mental status grossly normal Assessment & Plan Assessment & Plan (1) Diarrhea: Code(s): R19.7 - Diarrhea, unspecified Qualifiers: Diarrhea type: functional diarrhea Qualified Code(s): K59.1 - Functional diarrhea (2) Postprandial abdominal bloating: Code(s): R14.0 - Abdominal distension (gaseous) Plan Will send patient to to check fecal calprotectin, CRP. Will check vitamin-D, B12, folate, thyroid study. Patient is taking thyroid supplement. Patient will be sent for colonoscopy. Patient will start taking Citrucel daily and senna in the evening. I will see patient after the procedure, sooner on as needed basis. Patient is agreeable to this plan and verbalizes understanding of instructions. She was given the opportunity to ask questions and all questions answered. Thank you for allowing me to participate in her care Orders: Orders C Reactive Protein Today K58.9 - Irritable bowel syndrome without diarrhea Vitamin D 25-OH (D2 and D3) Today E55.9 - Vitamin D deficiency, unspecified Vitamin B12 and Folate Today R19.7 - Diarrhea, unspecified Calprotectin, Fecal Today R15.9 - Full incontinence of feces TSH reflex Free T4 Today K59.00 - Constipation, unspecified Medications: New sennosides (Senokot) 17.2 mg (2 x 8.6 mg) PO DAILY 180 tabs 3RF K59.04 - Chronic idiopathic constipation bisacodyl (Dulcolax (bisacodyl)) take 4 tabs at noon the day before your colonoscopy 20 mg (4 x 5 mg) PO ONCE 1 day 4 tabs 0RF Z12.11 - Encounter for screening for malignant neoplasm of colon polyethylene glycol 3350 (Miralax) As directed by gastroenterology department at [facility] 238 grams PO ONCE 238 grams 0RF Z12.11 - Encounter for screening for malignant neoplasm of colon methylcellulose (laxative) (Citrucel) 500 mg PO DAILY 30 tabs 2RF K59.00 - Constipation, unspecified Coding Level of Care Code New Pt Level 4 (82293) Diagnoses Functional diarrhea K59.1 Diarrhea type: functional diarrhea Postprandial abdominal bloating R14.0 Time Spent (min) 45 Comment 30 minutes spent with patient and 15 minutes spent reviewing her records
[2023-10-11 08:26] VITALS: BP 111/65; PULSE 63; BMI 24.2
== END 2023-10-11 09:24 | disposition home or self-care (01) ==
PROVIDERS: PCP Internal Medicine; Visit Provider Nurse Practitioner Family
DX: K59.1 Functional diarrhea (principal); R14.0 Abdominal distension (gaseous)
CPT/HCPCS: 99204

== ENCOUNTER → 2023-10-11 08:19 | Outpatient (BNVA) | payer BC, SELFPAY | PROVIDERS: PCP Internal Medicine; Visit Provider Nurse Practitioner Family ==

== ENCOUNTER 2023-10-17 13:51 | Outpatient (REF) | payer BC, SELFPAY ==
[2023-10-17 16:47] LABS: C Reactive Protein 0.11 mg/dL (< or = 0.50)
[2023-10-17 17:04] LABS: TSH reflex Free T4 3.03 uIU/mL (0.32-4.0)
[2023-10-17 17:12] LABS: Folate 7.1 ng/mL (> or = 4.0); Vitamin B12 363 pg/mL (200-900)
[2023-10-22 15:23] LABS: Vitamin D 25-OH, D2 <4 ng/mL; Vitamin D 25-OH, D3 34 ng/mL; Vitamin D 25-OH, Total 34 ng/mL (30-100)
== END 2023-10-17 13:52 | disposition home or self-care (01) ==
LOC: HO.HMGCLDS 13:51
PROVIDERS: PCP Internal Medicine; Visit Provider Nurse Practitioner Family
DX: K58.9 Irritable bowel syndrome, unspecified (principal); R19.7 Diarrhea, unspecified; E55.9 Vitamin D deficiency, unspecified; K59.00 Constipation, unspecified
CPT/HCPCS: 36415; 82306; 82607; 82746; 84443; 86140

== ENCOUNTER 2024-08-13 08:56 | Day surgery (SDC) | payer BC, SELFPAY ==
[2024-08-09 12:49] VITALS: BMI 24.2
--- NOTE | 2024-08-10 11:42 | HO.ANESPROP2 ---
Documented by User: Claudine Hatch NP 08/10/24 11:42 HPI - Anesthesia Eval Consult details Narrative: 34yo F for Colonoscopy [facility] Past Medical History Medical History (Updated 08/09/24 @ 12:50 by Luna Parra RN) Hypothyroid Enteritis, Yersinia enterocolitica Family History Family History (Updated 10/11/23 @ 08:28 by REDDY Marquez) Maternal Grandmother Colon cancer Paternal Grandfather Colon polyp Surgical History Surgical History (Updated 08/13/24 @ 09:41 by Kim Ortega RN) H/O hernia repair Social History Social History Alcohol intake: current Patient Tobacco Use Status: Never used Tobacco Advance Directives: No Advance Directives Information Provided: Yes Meds Allergies Allergy/AdvReac Type Severity Reaction Status Date / Time No Known Allergies Allergy Verified 08/13/24 09:41 Home Medications ?Medication ?Instructions ?Recorded ?Confirmed ?Last Taken ?Type No Known Home Meds 08/13/24 08/13/24 Unknown History Exam Height,Weight and Vital Signs: Height 5 ft 6 in Weight 68.039 kg Assessment and Plan Assessment Anesthesia Assessment: Chart Reviewed Documented by User: Sulema Vanegas MD 08/13/24 09:46 [facility] Past Medical History Medical History (Updated 08/09/24 @ 12:50 by Luna Parra RN) Hypothyroid Enteritis, Yersinia enterocolitica Family History Family History (Updated 10/11/23 @ 08:28 by REDDY Marquez) Maternal Grandmother Colon cancer Paternal Grandfather Colon polyp Family history of problems with anesthesia: No Surgical History Surgical History (Updated 08/13/24 @ 09:41 by Kim Ortega RN) H/O hernia repair History of Problems with Anesthesia: No Social History Social History Alcohol intake: current Patient Tobacco Use Status: Never used Tobacco Advance Directives: No Advance Directives Information Provided: Yes Meds Allergies Allergy/AdvReac Type Severity Reaction Status Date / Time No Known Allergies Allergy Verified 08/13/24 09:41 Home Medications ?Medication ?Instructions ?Recorded ?Confirmed ?Last Taken ?Type No Known Home Meds 08/13/24 08/13/24 Unknown History Exam Airway Mallampati Class: II TM Dist: >3cm Neck ROM: Full Heart: rrr Lungs: cta Assessment and Plan Assessment Anesthesia Assessment: Anesthesia Plan Discussed Final Anesthetic Review Family History of Problems with Anesthesia: No History of Problems with Anesthesia: No NPO: Yes ASA Class: II Final Preanesthetic Review: No Changes in Pt Med Stat, Meds/Allgs Chart Reviewed and Consent Obtained/Reviewed Patient Risk: Low Procedure Risk: Low Anesthetic Plan Anesthetic Plan: MAC: Disposition: Standard PACU
[2024-08-13 09:52] LABS: UPreg QC Valid YES; Urine Pregnancy NEGATIVE (NEGATIVE)
[2024-08-13 10:00] VITALS: BP 119/71; PULSE 71; RESP 16; TEMP 37.1; O2SAT 99; BMI 24.2
[2024-08-13] MEDS: Lactated Ringers 1,000 ML 100 ML IVCONT (10:10)
--- NOTE | 2024-08-13 10:45 | MHC.SHP ---
Pre-Procedural Eval Section A - 24 Hr Update-Section A only Date of Service: 08/13/24 The patient is an INPATIENT: No The patient has been examined within 24 hours of the surgical procedure. The History & Physical has been completed within 30 days and I have reviewed it.: No Section B - Complete if H&P > 30 days Chief Complaint: Chronic diarrhea Relevant Family History (Specify if Yes): Yes Relevant Social History: None Present Medications: see Short Stay Collaborative assessment Medical History: Significant History (Enteritis, Yersinia enterocolitica, hypothyroidism) History of Previous Operations: Relevant previous surgery/procedure and date(s) (History of hernia repair) Allergies: Allergies Allergy/AdvReac Type Severity Reaction Status Date / Time No Known Allergies Allergy Verified 08/13/24 09:41 Review of Systems Sugical H&P ROS: Negative: Constitution, Cardiovascular, Respiratory and Gastrointestinal Exam Surgical H&P Exam: Normal: Heart, Normal: Lungs, Normal: Extremities and Normal: Abdomen Plan Diagnosis/Plan: Unchanged I have reviewed the history and physical and performed a pertinent physical examination on my patient. No changes have occurred unless specified. Time Spent With Patient Time: Total time managing care of this patient today ____ minutes.
--- NOTE | 2024-08-13 11:22 | HO.OPN-COLON ---
Colonoscopy Operative Note Operative Note Date of Service: 08/13/24 Narrative: COLONOSCOPY TILL CECUM WITH BIOPSIES Pre-op diagnosis: Chronic diarrhea, family history of colon cancer (maternal GM in her early 70's and polyps (Mom). Post-op diagnosis:? Diverticulosis. Endoscopist:? Apollo Phipps MD Anesthesia:?MAC Consent: Indications for the procedure and potential complications of bleeding, perforation, reaction to medications and missed diagnosis were discussed with the patient and informed consent was obtained. Instrument: Olympus PCF H 190 L variable stiffness pediatric colonoscope Monitoring: Vital signs and clinical assessment, intermittent blood pressure monitoring, continuous EKG monitoring, Pulse oximetry and Carbon Dioxide monitoring were done throughout the procedure. Please see anesthesia flowsheet. Colon withdrawl time was 15 minutes. Procedure: The patient was placed in the left lateral decubitis position and pre-procedure medications were administered. After a digital rectal examination of the ano-rectum, the video colonoscope was inserted into the rectum and advanced through the colon to the cecum. The colonoscope was slowly withdrawn in a retrograde panoramic fashion and the colon mucosa was carefully examined including a retroflexed view of the rectum. Findings and interventions are described below. Procedure Difficulty: without difficulty Findings: Terminal Ileum: Not evaluated Cecum: Normal Ascending Colon: Normal Transverse Colon: Normal Descending Colon: Normal Sigmoid Colon: Moderate diverticulosis Rectum: Normal Ano-rectum: Normal Colon preparation: Good after copious irrigation. [place] Bowel Preparation Scale Right colon; 2 Transverse colon: 2 Left colon; 2 (0 = Unprepared colon segment with mucosa not seen due to solid stool that cannot be cleared. 1 = Portion of mucosa of the colon segment seen, but other areas of the colon segment not well seen due to staining, residual stool and/or opaque liquid. 2 = Minor amount of residual staining, small fragments of stool and/or opaque liquid, but mucosa of colon segment seen well. 3 = Entire mucosa of colon segment seen well with no residual staining, small fragments of stool or opaque liquid) Impression and Post Procedure Diagnosis: Colonoscopy Findings: No polyps were detected Moderate diverticulosis seen in the sigmoid colon Random biopsies were obtained from right and left colon to check for microscopic colitis. Plan: Pt has a FU appointment on 08/24/24 with Alice Guzmán NP Repeat Colonoscopy in 10 years if colon biopsies are normal. Above findings were reviewed with the patient and relevant handouts were given and the discharge area. Patient reports her diarrhea has improved.
[2024-08-13 11:23] VITALS: BP 96/56; PULSE 57; RESP 16; TEMP 36.7; O2SAT 99
[2024-08-13 11:40] VITALS: BP 109/68; PULSE 57; RESP 16; TEMP 36.4; O2SAT 99
== END 2024-08-13 11:54 | disposition home or self-care (01) ==
PROVIDERS: Nurse Practitioner; PCP Internal Medicine; Visit Provider Internal Medicine Gastroenterology
PROC: 0DJD8ZZ Inspection of Lower Intestinal Tract, Via Natural or Artificial Opening Endoscopic (ICD-10-PCS; CPT 45378; principal; 2024-08-13 11:10)
DX: K57.30 Diverticulosis of large intestine without perforation or abscess without bleeding (principal); K59.1 Functional diarrhea; Z83.719 Family history of colon polyps, unspecified
CPT/HCPCS: 45380; 81025; 88305; J2003; J2704

== ENCOUNTER 2024-08-24 12:15 | Outpatient (AMB) | payer BC, SELFPAY ==
[2024-08-24 12:17] VITALS: BP 112/70; PULSE 62; O2SAT 99; BMI 24.8
--- NOTE | 2024-08-24 12:17 | A.OFFVIS_ITS ---
Vital Signs 08/24/24 12:17 Height 5 ft 6 in Weight 153 lb 7.068 oz BMI 24.8 BP 112/70 Blood Pressure Location Rt brachial Position Sitting Pulse 62 Pulse Source Pulse Oximeter Pulse Oximetry (%) 99 Oxygen Delivery Method Room Air Intake Visit Reasons: s/p colon Intake Note: ESTABLISHED PATIENT Reason; s/p FUV. Req by surgeon. Changes/concerns? No significant concerns per pt. Allergies No Known Allergies Allergy (Verified 08/24/24 12:17) HPI HPI s/p colon: Details: LAST VISIT: Diarrhea Postprandial abdominal bloating Plan Will send patient to to check fecal calprotectin, CRP. Will check vitamin-D, B12, folate, thyroid study. Patient is taking thyroid supplement. Patient will be sent for colonoscopy. Patient will start taking Citrucel daily and senna in the evening. I will see patient after the procedure, sooner on as needed basis. Patient is agreeable to this plan and verbalizes understanding of instructions. She was given the opportunity to ask questions and all questions answered. ? Thank you for allowing me to participate in her care Orders Orders C Reactive Protein Today K58.9 Vitamin D 25-OH (D2 and D3) Today E55.9 Vitamin B12 and Folate Today R19.7 Calprotectin, Fecal Today R15.9 TSH reflex Free T4 Today K59.00 Medications New sennosides (Senokot) 17.2 mg (2 x 8.6 mg) PO DAILY 180 tabs 3RF K59.04 bisacodyl (Dulcolax (bisacodyl)) take 4 tabs at noon the day before your colonoscopy 20 mg (4 x 5 mg) PO ONCE 1 day 4 tabs 0RF Z12.11 polyethylene glycol 3350 (Miralax) As directed by gastroenterology department at [facility] 238 grams PO ONCE 238 grams 0RF Z12.11 methylcellulose (laxative) (Citrucel) 500 mg PO DAILY 30 tabs 2RF K59.00 COLONOSCOPY Findings: Terminal Ileum: Not evaluated Cecum: Normal Ascending Colon: Normal Transverse Colon: Normal Descending Colon: Normal Sigmoid Colon: Moderate diverticulosis Rectum: Normal Ano-rectum: Normal Colon preparation: Good after copious irrigation. [place] Bowel Preparation Scale Right colon; 2 Transverse colon: 2 Left colon; 2 (0 = Unprepared colon segment with mucosa not seen due to solid stool that cannot be cleared. 1 = Portion of mucosa of the colon segment seen, but other areas of the colon segment not well seen due to staining, residual stool and/or opaque liquid. 2 = Minor amount of residual staining, small fragments of stool and/or opaque liquid, but mucosa of colon segment seen well. 3 = Entire mucosa of colon segment seen well with no residual staining, small fragments of stool or opaque liquid) Impression and Post Procedure Diagnosis: Colonoscopy Findings: No polyps were detected Moderate diverticulosis seen in the sigmoid colon Random biopsies were obtained from right and left colon to check for microscopic colitis. Plan: Repeat Colonoscopy in 10 years if colon biopsies are normal. Above findings were reviewed with the patient and relevant handouts were given and the discharge area. Patient reports her diarrhea has improved. PATHOLOGY RESULTS Diagnosis A. Colon, right, biopsy: Colonic mucosa with prominent lymphoid aggregates; negative for microscopic colitis. B. Colon, left, biopsy: Colonic mucosa with prominent lymphoid aggregate; negative for microscopic colitis TODAY'S VISIT Patient is here today for follow-up and to discuss colonoscopy results. Patient denies any ill effects from the prep, anesthesia or procedure itself. Patient reports that she has been feeling well since last visit. Patient changed her diet no longer has postprandial loose stools. Patient stopped eating spicy food and Kimchi. Lab results as well as colonoscopy and biopsy results discussed with patient. Patient is taking pre and probiotics daily. Denies melena, hematochezia, unintentional weight loss or ribbon like stools. Patient denies dyspepsia, dysphagia or odynophagia. Patient denies any GI concerning symptoms today. [facility] Medical History (Updated 08/24/24 @ 13:46 by Mellissa Guzmán [employer]-) Diverticulosis Hypothyroid Enteritis, Yersinia enterocolitica Surgical History H/O hernia repair Family History Maternal Grandmother Colon cancer Paternal Grandfather Colon polyp Social History Are you a primary doggy daycare activities director to a significant other at home: No Do you presently have visiting nurse or other home services: No Alcohol intake: current Alcohol intake frequency: a few times a month Patient Tobacco Use Status: Never used Tobacco Physical Exam Vital Signs: Last Vital Signs Pulse 62 08/24/24 12:17 BP 112/70 08/24/24 12:17 Pulse Ox 99 08/24/24 12:17 Oxygen Delivery Method Room Air 08/24/24 12:17 BMI result Body Mass Index 24.8 Assessment & Plan Assessment & Plan (1) Diarrhea: Code(s): R19.7 - Diarrhea, unspecified Qualifiers: Diarrhea type: functional diarrhea Qualified Code(s): K59.1 - Functional diarrhea (2) Postprandial abdominal bloating: Code(s): R14.0 - Abdominal distension (gaseous) (3) Diverticulosis: Code(s): K57.90 - Diverticulosis of intestine, part unspecified, without perforation or abscess without bleeding Category: Medical (4) Status post colonoscopy: Code(s): Z98.890 - Other specified postprocedural states Plan Patient will continue her current regimen with avoiding dietary triggers. Follow low FODMAP diet to help with avoiding bloating and postprandial diarrhea. Moderate diverticulosis seen in sigmoid colon. Recommended high-fiber diet, may take [id number] fiber with probiotics. Follow-up as needed. Next colonoscopy at age 43. Sooner if clinically necessary. Patient is agreeable to current plan of care and verbalizes understanding of instructions. Shee was given the opportunity to ask questions and all questions answered. Thank you for allowing me to participate in her care Coding Level of Care Code Est Pt Level 3 (33600) Diagnoses Functional diarrhea K59.1 Diarrhea type: functional diarrhea Postprandial abdominal bloating R14.0 Diverticulosis K57.90 Status post colonoscopy Z98.890 Time Spent (min) 25 Comment 15 minutes spent with patient and additional 10 minutes spent reviewing her records
== END 2024-08-24 14:18 | disposition home or self-care (01) ==
PROVIDERS: PCP Internal Medicine; Visit Provider Nurse Practitioner Family
DX: K59.1 Functional diarrhea (principal); R14.0 Abdominal distension (gaseous); K57.90 Diverticulosis of intestine, part unspecified, without perforation or abscess without bleeding; Z98.890 Other specified postprocedural states
CPT/HCPCS: 99213

== ENCOUNTER 2024-09-14 09:04 | Outpatient (REF) | payer BC, SELFPAY ==
--- OUTSIDE RECORDS SUMMARY | 2024-09-14 09:31 | XMS_ITS | Encounter Summary ---
Author Organization [facility] Address [address] [place] [phone] Phone Care Team Providers Care Cashier Office Name Role Phone Bing Martin MD Primary Care Provider [phone] Encounter Details Date Type Department Care Team (Late st Contact Info) Description 03/24/2017 Conversion Encounter [facility] [address] [place] [address] Social History Tobacco Use Types Packs/Day Years Used Date Smoking Tobacco: Never Assessed Comments Unknown Sex and Gender Information Value Date Recorded Sex Assigned at Not on file Legal Sex Female 4:28 PM EDT Gender Identity Not on file Sexual Orientation Not on file documented as of this encounter Plan of Treatment Not on file documented as of this encounter Visit Diagnoses Not on filedocumented in this encounter Care Teams Cashier Office Relationship Specialty Start Date End Date Bing Martin MD [address] [place] [address] PCP - General 03/18/17 11/07/22 documented as of this encounter
--- OUTSIDE RECORDS SUMMARY | 2024-09-14 09:31 | XMS_ITS | Clinical Summary ---
Author Organization [facility] Address [address] [place] [phone] Phone Care Team Providers Care Animal Cruelty Investigation Supervisor Name Role Phone Unavailable Primary Care Provider Unavailabl e Immunizations Immunization Administration Dates Next Due DTP 02/11/1993, 0,1988,07/02,1988 Hep B, ped/adol 11/02/1999,05/14/1999,04/14/1999 Hib (PRP-T) 09/29/1989 MMR 04/14/1999,05/26/1989 Meningococcal Conj (Menactra) MCV4P 02/21/2006 OPV 02/11/1993, 0,1988,04/29 Td (adult) (Tenivac), 5 Lf t etanus toxoid, PF, adsorbed 04/14/1999 Family History Relation Name Status Comments Father Alive Father: Alive a nd well Mother Alive Mother: Alive a nd well Other Family history of Diabetes mellitus Social History Tobacco Use Types Packs/Day Years Used Date Smoking Tobacco: Never Assessed Comments Unknown Sex and Gender Information Value Date Recorded Sex Assigned at Not on file Legal Sex Female 4:28 PM EDT Gender Identity Not on file Sexual Orientation Not on file Plan of Treatment Health Maintenance Due Date Last Done Comments DTaP,Tdap,and Td Vaccines (6 - Tdap) 04/15/1999 04/14/1999, 02/11/1993, 09/29/1989, Additional history exists Varicella Vaccines (1 of 2 - 13+ 2-dose series) 02/25/2001 Influenza Vaccines (#1) 2024 COVID-19 Vaccine ( season) 2024 HIB Vaccines Completed 09/29/1989 IPV Vaccines Completed 02/11/1993, 09/09, 1988, Additional history exists MMR Vaccines Completed 04/14/1999, 05/26/1989 Hepatitis B Vaccines Completed 11/02/1999, 05/14/1999, 04/14/1999 Meningococcal Vaccine Completed 02/21/2006 HPV Vaccines Aged Out No longer eligi ble based on patient's age to complete this topic Hepatitis A Vaccines Aged Out No long er eligible based on patient's age to complete this topic Men B Vaccine Aged Out No longer elig ible based on patient's age to complete this topic Pneumococcal Vaccine Aged Out No long er eligible based on patient's age to complete this topic
[2024-09-14 10:20] LABS: MANUAL DIFF FLAG NO
[2024-09-14 10:29] LABS: Basophils Absolute Auto 0.1 X10*3/uL (0.0-0.2); Basophils Percent Auto 1.1 % (0-2); Eosinophils Absolute Auto 0.1 X10*3/uL (0.0-0.4); Eosinophils Percent Auto 3.2 % (0-4); Hematocrit 36.3 % (37.0-47.0); Hemoglobin 12.4 g/dl (12.0-16.0); Imm Gran Abs Auto 0.01 X10*3/uL (0.00-0.03); Imm Gran Pct Auto 0.2 % (0.0-0.4); Lymphocytes Percent Auto 45.8 % (20-40); Mean Corpuscular HGB Conc 34.2 g/dl (31.0-35.0); Mean Corpuscular Hemoglobin 32.3 pg (27.0-33.0); Mean Corpuscular Volume 94.5 fL (80.0-98.0); Mean Platelet Volume 9.8 fL (9.4-12.3); Monocytes Absolute Auto 0.3 X10*3/uL (0.1-1.2); Monocytes Percent Auto 7.7 % (2-11); Neutrophils Absolute Auto 1.8 x10*3/uL (2.0-8.3); Platelet Count 239 X10*3/uL (160-400); Red Blood Count 3.84 X10*6/uL (4.20-5.50); Red Cell Distribution Width 12.2 % (11.0-16.0); White Blood Count 4.4 X10*3/uL (4.8-10.8)
[2024-09-14 11:43] LABS: Alanine Aminotransferase 12 U/L (0-31); Albumin Level 4.4 g/dL (3.5-5.0); Alkaline Phosphatase 27 U/L (39-117); Anion Gap 10 (12-20); Aspartate Amino Transferase 22 U/L (5-31); Bilirubin Total 0.7 mg/dL (0.0-1.0); Blood Urea Nitrogen 10 mg/dL (9-16); Calcium 9.3 mg/dL (8.4-10.2); Carbon Dioxide 24 mmol/L (22-29); Chloride 108 mmol/L (96-108); Cholesterol 149 mg/dL (<200); Estimated Glomerular Filt Rate > 60; Glucose Fasting 94 mg/dL (60-99); Glucose Random 93 mg/dL (60-115); Iron 100 mcg/dL (30-160); Percent Iron Saturation 38 % (15-50); Potassium 3.9 mmol/L (3.3-5.1); Sodium 138 mmol/L (135-145); Total Iron Binding Capacity 262 mcg/dL (228-428); Total Protein 7.6 g/dL (6.5-8.0); Unsaturated Iron Binding 162 ug/dL
[2024-09-14 11:48] LABS: Free T4 (Free Thyroxine) 0.87 ng/dL (0.71-1.85); Thyroid Stimulating Hormone 3.82 uIU/mL (0.32-4.0); Vitamin D 25-OH Total 37.8 ng/mL (>30)
[2024-09-14 12:21] LABS: T4 Thyroxine 4.9 ug/dL (4.5-12.0)
[2024-09-15 08:53] LABS: Triiodothyronine T3 Total 103 ng/dL (76-181)
[2024-09-17 18:47] LABS: Thyroglobulin 19.2 ng/mL; Thyroid Peroxidase Antibodies 38 IU/mL (<9)
[2024-09-17 22:44] LABS: Lyme Abs Screen <0.90 index
== END 2024-09-14 09:05 | disposition home or self-care (01) ==
LOC: HO.HMGCLDS 09:04
PROVIDERS: PCP Internal Medicine; Visit Provider Internal Medicine
DX: Z00.00 Encounter for general adult medical examination without abnormal findings (principal)
CPT/HCPCS: 36415; 80053; 82306; 82465; 83540; 84432; 84436; 84439; 84443; 84480; 85025; 86376; 86617; 86618

== ENCOUNTER 2024-12-28 13:35 | Outpatient (AMB) | payer BC, SELFPAY ==
--- NOTE | 2024-12-28 13:33 | MHC.PC.OV ---
Vital Signs 12/28/24 13:34 Height 5 ft 6 in Weight 147 lb BMI 23.7 BP 118/70 Blood Pressure Location Lt brachial Position Sitting Pulse 65 Pulse Source Pulse Oximeter Temp 98.5 F Temp Source Axillary Pulse Oximetry (%) 99 Oxygen Delivery Method Room Air Intake Visit Reasons: Routine [employer] Policy Specialist Required: No Accompanied by: Self / Same As Patient Allergies No Known Allergies Allergy (Verified 12/28/24 13:34) Tobacco use date assessed: 12/28/24 Dental Screening Dental Screen Date: 12/28/24 Did you have a dental visit in the last 12 months?: No Did you have a dental problem in the last 6 months where you did not have access to dental care?: No HPI HPI Comments History of Present Illness Details 34 year old female with a past medical history of low vitamin D, abnormal tft/hypothyroid, presenting for follow up She had a full lab panel in September. Her lymphocyte percentage is mildly elevated. She would like a recheck. She feels stressed, amped up and would like her cortisol checked. Previously on levothyroxine but was gaining weight and feeling awful ROS see HPI PHYSICAL EXAM: GENERAL: Alert and oriented x 3. NAD EYES: EOMI. Anicteric. HENT: Moist mucous membranes. No scleral icterus. No cervical lymphadenopathy. Thyroid WNL LUNGS: Clear to auscultation bilaterally. CARDIOVASCULAR: Regular rate and rhythm. ABDOMEN: Soft, non-tender +bs EXTREMITIES: No edema. Non-tender. SKIN: No rashes or lesions. Warm. NEUROLOGIC: No focal neurological deficits. CN II-XII grossly intact PSYCHIATRIC: Cooperative. Appropriate mood and affect [facility] Medical History Diverticulosis Hypothyroid Enteritis, Yersinia enterocolitica Surgical History H/O hernia repair Family History Maternal Grandmother Colon cancer Paternal Grandfather Colon polyp Mother No problems noted. Father No problems noted. Social History Housing: House Are you a primary primary care nurse practitioner to a significant other at home: No Do you presently have visiting nurse or other home services: No Alcohol intake: current Alcohol intake frequency: a few times a month Patient Tobacco Use Status: Never used Tobacco e-Cigarette/Vaping Use: Never Used service: No Current occupational status: employed Cognitive needs: No Hearing needs: No Vision needs: No Questionnaire PHQ-9 Over the last 2 weeks, how often have you been bothered by any of the following problems? 1. Little interest or pleasure in doing things: not at all 2. Feeling down, depressed, or hopeless: not at all 3. Trouble falling or staying asleep, or sleeping too much: not at all 4. Feeling tired or having little energy: not at all 5. Poor appetite or overeating: not at all 6. Feeling bad about yourself - or that you are a failure or have let yourself or your family down: not at all 7. Trouble concentrating on things, such as reading the newspaper or watching television: not at all 8. Moving or speaking so slowly that other people could have noticed. Or the opposite - being so fidgety or restless that you have been moving around a lot more than usual: not at all 9. Thoughts that you would be better off or of hurting yourself in some way: not at all Total score: 0 Depression Screening Interpretation: Negative Depression Screening Done: Yes 56178 - PHQ-9 Billing: Yes Source: Developed by Drs. Chase Ho, Anai Andrade, Ariel Eldridge and colleagues, with an educational laura from [employer]. Thrive Questionnaire Date Thrive assessed: 12/28/24 I am a: Patient Within the past 12 months, did the food you bought not last and you didn't have the money to get more?: Never true Within the past 12 months, did you worry whether your food would run out before you got money to buy more?: Never true Do you have trouble paying for medicines?: No Do you have trouble getting transportation to medical appointments?: No Do you have trouble paying your heating and electricity bill?: No Do you have trouble taking care of your child, family member or friend?: No Do you have trouble with day-to-day activities such as bathing, preparing meals, shopping, managing finances, etc.?: No Are you currently unemployed and looking for a job?: No Are you interested in more education?: No THRIVE Score: 0 AUDIT C Alcohol Use Questionnaire (AUDIT-C) 1. How often do you have a drink containing alcohol?: Monthly or less 2. How many drinks containing alcohol do you have on a typical day when you are drinking?: 1 or 2 3. How often do you have six or more drinks on one occasion?: Less than monthly Total Score: 2 MARYCRUZ-7 AMB Questionnaire MARYCRUZ-7 Date MARYCRUZ - 7 assessed: 12/28/24 Feeling nervous, anxious, or on edge: 0 = Not at all Not being able to stop or control worryin = Not at all Worrying too much about different things: 0 = Not at all Trouble relaxin = Not at all Being so restless that it is hard to sit still: 0 = Not at all Becoming easily annoyed or irritable: 0 = Not at all Feeling afraid as if something awful might happen: 0 = Not at all Total MARYCRUZ-7 score (0-4 normal; 5-9 mild; 10-14 moderate; 15-21 severe): 0 Source: Developed by Drs. Chase Ho, Anai Andrade, Ariel Eldridge and colleagues, with an educational laura from [employer]. Physical exam (Primary Care) Vital Signs: Last Vital Signs Temp 98.5 F 12/28/24 13:34 Pulse 65 12/28/24 13:34 BP 118/70 12/28/24 13:34 Pulse Ox 99 12/28/24 13:34 Oxygen Delivery Method Room Air 12/28/24 13:34 BMI result Body Mass Index 23.7 Tobacco/Smoking Status: Tobacco use Status Tobacco use date assessed 12/28/24 12/28/24 13:35 Patient Tobacco Use Status Never used Tobacco 12/28/24 13:35 e-Cigarette/Vaping Use Never Used 12/28/24 13:35 PHQ-9: PHQ-9 Score PHQ-9: Total score 0 12/28/24 13:52 Depression Screening Interpretation: Negative Thrive Assessment: Date of Thrive Assessment Date Thrive assessed 12/28/24 12/28/24 13:35 Coding Level of Care Code New Pt Level 3 (97713) Complex EM visit Add On G2211 Diagnoses Hypothyroidism, unspecified type E03.9 Hypothyroidism type: unspecified Abnormal CBC R79.89 Screening for metabolic disorder Z13.228 Borderline abnormal TFTs R94.6 Additional Codes PHQ-9 - 04173 - PHQ-9 Billing: Yes ([id number]) Assessment & Plan Assessment & Plan (1) Hypothyroid: Code(s): E03.9 - Hypothyroidism, unspecified Category: Medical Qualifiers: Hypothyroidism type: unspecified Qualified Code(s): E03.9 - Hypothyroidism, unspecified (2) Abnormal CBC: Code(s): R79.89 - Other specified abnormal findings of blood chemistry Category: Medical (3) Screening for metabolic disorder: Code(s): Z13.228 - Encounter for screening for other metabolic disorders Category: Medical (4) Borderline abnormal TFTs: Code(s): R94.6 - Abnormal results of thyroid function studies Category: Medical Plan 34 year old to establish care past medical, surgical, social reviewed Elevated lymphocytes-repeat cbc. Repeat labs Orders: Orders Complete Blood Count Auto Diff Today E03.9 - Hypothyroidism, unspecified, R79.89 - Other specified abnormal findings of blood chemistry, R94.6 - Abnormal results of thyroid function studies, Z13.228 - Encounter for screening for other metabolic disorders Pathologist Review - CBC Today E03.9 - Hypothyroidism, unspecified, R79.89 - Other specified abnormal findings of blood chemistry, R94.6 - Abnormal results of thyroid function studies, Z13.228 - Encounter for screening for other metabolic disorders TSH reflex Free T4 Today E03.9 - Hypothyroidism, unspecified, R79.89 - Other specified abnormal findings of blood chemistry, R94.6 - Abnormal results of thyroid function studies, Z13.228 - Encounter for screening for other metabolic disorders Vitamin B12 and Folate Today E03.9 - Hypothyroidism, unspecified, R79.89 - Other specified abnormal findings of blood chemistry, R94.6 - Abnormal results of thyroid function studies, Z13.228 - Encounter for screening for other metabolic disorders UA CC w/rflx Micro + Cult Today E03.9 - Hypothyroidism, unspecified, R79.89 - Other specified abnormal findings of blood chemistry, R94.6 - Abnormal results of thyroid function studies, Z13.228 - Encounter for screening for other metabolic disorders Cortisol Random Today R79.89 - Other specified abnormal findings of blood chemistry Thyroid Peroxidase Antibodies Today E03.9 - Hypothyroidism, unspecified, R79.89 - Other specified abnormal findings of blood chemistry, R94.6 - Abnormal results of thyroid function studies, Z13.228 - Encounter for screening for other metabolic disorders Lyme IgG/IgM w/reflex to WB Today E03.9 - Hypothyroidism, unspecified, R79.89 - Other specified abnormal findings of blood chemistry, R94.6 - Abnormal results of thyroid function studies, Z13.228 - Encounter for screening for other metabolic disorders Vitamin D 25-OH (D2 and D3) Today E03.9 - Hypothyroidism, unspecified, R79.89 - Other specified abnormal findings of blood chemistry, R94.6 - Abnormal results of thyroid function studies, Z13.228 - Encounter for screening for other metabolic disorders
[2024-12-28 13:34] VITALS: BP 118/70; PULSE 65; TEMP 36.9; O2SAT 99; BMI 23.7
--- OUTSIDE RECORDS SUMMARY | 2024-12-28 13:40 | XMS_ITS | Clinical Summary ---
Author Organization [facility] Address [address] [place] [phone] Phone Care Team Providers Care Mixer And Scaler Name Role Phone Unavailable Primary Care Provider [...]
== END 2024-12-28 14:14 | disposition home or self-care (01) ==
LOC: HO.HMCHD 13:36
PROVIDERS: PCP Internal Medicine; Visit Provider Internal Medicine
DX: E03.9 Hypothyroidism, unspecified (principal); R79.89 Other specified abnormal findings of blood chemistry; Z13.228 Encounter for screening for other metabolic disorders; R94.6 Abnormal results of thyroid function studies

== ENCOUNTER → 2024-12-28 13:35 | Outpatient (BNVA) | payer BC, SELFPAY | PROVIDERS: PCP Internal Medicine; Visit Provider Internal Medicine | DX: R94.6 Abnormal results of thyroid function studies (principal); E03.9 Hypothyroidism, unspecified; R79.89 Other specified abnormal findings of blood chemistry; E55.9 Vitamin D deficiency, unspecified | CPT/HCPCS: 96127 ==

== ENCOUNTER 2025-01-02 08:46 | Outpatient (REF) | payer BC, SELFPAY ==
--- OUTSIDE RECORDS SUMMARY | 2025-01-02 09:07 | XMS_ITS ---
Author Name [facility] Organization Unknown Care Team Organization Name Specialty Phone Email Start Date End Da te [employer] 08/11/2023 [employer] [facility] 06/17/2023
[2025-01-02 10:18] LABS: MANUAL DIFF FLAG NO
[2025-01-02 10:24] LABS: Appearance Urine Cloudy; Basophils Percent Auto 0.7 % (0-2); Color Urine Dark Yellow; Eosinophils Absolute Auto 0.1 X10*3/uL (0.0-0.4); Eosinophils Percent Auto 2.5 % (0-4); Glucose Urine UA Negative (Negative); Hematocrit 38.5 % (37.0-47.0); Hemoglobin 13.1 g/dl (12.0-16.0); Imm Gran Abs Auto 0.01 X10*3/uL (0.00-0.03); Imm Gran Pct Auto 0.2 % (0.0-0.4); Leukocyte Esterase Urine Moderate (2+) (Negative); Lymphocytes Absolute Auto 1.8 X10*3/uL (1.2-4.9); Mean Corpuscular Hemoglobin 32.8 pg (27.0-33.0); Mean Corpuscular Volume 96.5 fL (80.0-98.0); Mean Platelet Volume 9.6 fL (9.4-12.3); Monocytes Absolute Auto 0.3 X10*3/uL (0.1-1.2); Monocytes Percent Auto 7.4 % (2-11); Neutrophils Absolute Auto 2.2 x10*3/uL (2.0-8.3); Neutrophils Percent Auto 49.2 % (45-73); Nitrite Urine Negative (Negative); PH 5.5 (5.0-9.0); Platelet Count 241 X10*3/uL (160-400); Red Blood Count 3.99 X10*6/uL (4.20-5.50); Red Cell Distribution Width 12.4 % (11.0-16.0); Specific Gravity - Urine 1.025 (1.005-1.025); UMIC TRIGGER UACC YES; Urine Blood Negative (Negative); Urine Ketones Trace mg/dL (Negative); Urine Protein Trace mg/dL (Neg-Trace); White Blood Count 4.5 X10*3/uL (4.8-10.8)
[2025-01-02 10:36] LABS: Bacteria Urine 3+ (None Seen); RBC Urine 0-2 /HPF (0-2); UACC Culture Trigger YES
[2025-01-02 11:06] LABS: TSH reflex Free T4 3.62 uIU/mL (0.32-4.0)
[2025-01-02 11:25] LABS: Folate 7.8 ng/mL (> or = 4.0); Vitamin B12 332 pg/mL (200-900)
[2025-01-02 16:51] LABS: Cortisol Random 14.6 ug/dL
[2025-01-03 17:49] LABS: Lyme Abs Screen <0.90 index
[2025-01-03 19:08] LABS: Thyroid Peroxidase Antibodies 12 IU/mL (<9)
[2025-01-06 15:54] LABS: Vitamin D 25-OH, D2 <4 ng/mL; Vitamin D 25-OH, D3 35 ng/mL; Vitamin D 25-OH, Total 35 ng/mL (30-100)
== END 2025-01-02 08:47 | disposition home or self-care (01) ==
LOC: HO.HMGCLDS 08:46
PROVIDERS: PCP Internal Medicine; Visit Provider Internal Medicine
DX: R79.89 Other specified abnormal findings of blood chemistry (principal); R94.6 Abnormal results of thyroid function studies; E03.9 Hypothyroidism, unspecified; Z13.228 Encounter for screening for other metabolic disorders; R30.0 Dysuria
CPT/HCPCS: 81001; 82306; 82533; 82607; 82746; 84443; 85025; 86376; 86617; 86618; 87086

== ENCOUNTER 2025-02-22 08:26 | Outpatient (AMB) | payer BC, SELFPAY ==
--- OUTSIDE RECORDS SUMMARY | 2025-02-22 08:29 | XMS_ITS | Clinical Summary ---
Author Organization [facility] Address [address] [place] [phone] Phone Care Team Providers Care Weld Lay Out Worker Name Role Phone Unavailable Primary Care Provider [...] of 2 - 13+ 2-dose series) 02/25/2001 COVID-19 Vaccine ( - season) 2024 Influenza Vaccines (#1) 2025 HIB Vaccines Completed 09/29/1989 IPV Vaccines Completed [...]
--- OUTSIDE RECORDS SUMMARY | 2025-02-22 08:29 | XMS_ITS | Encounter Summary ---
Author Organization [facility] Address [address] [facility] [address] [place] [id number] Phone Care Team Providers Care Media Planner Name Role Phone Lambert Pickering MD Unavailable [phone] Graeme Gorman MD Unavailable [phone] Pcp, Unknown Unavailable Unavailable Flor Greer MD Primary Care Provider [phone] Encounter Details Date Type Department Care Team (Late st Contact Info) Description 03/11/2021 Procedure Pass [address] [place] [address] Social History Tobacco Use Types Packs/Day Years Used Date Smoking Tobacco: Never Smokeless Tobacco: Never Alcohol Use Standard Drinks/Week Comments Yes 3 (1 standard drink = 0.6 oz pur e alcohol) socially Education Answer Date Recorded What is the highest level of school you have completed or the highest degree you have received? 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 [facility] [place] [address] Internal Medicine 07/22/20 01/02/24 Graeme Gorman MD [address] [place] [address], [address] [place] [address] Neurology 09/22/20 Pcp, Unknown 01/03/24 01/03/24 documented as of this encounter Additional Source Comments The information contained in this document represents components of the legal health record. It is not the complete legal health record.[facility]
--- NOTE | 2025-02-22 08:37 | MHC.PC.OV ---
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 Her lymphocyte percentage was mildly elevated. This normalized. At last visit reported feeling stressed, amped up- cortisol normal, TSH normalized. Previously on levothyroxine but was gaining weight and feeling awful. TSH was normal. She has started running and developed some left axillary pain and fullness. No breast pain. ROS see HPI PHYSICAL EXAM: GENERAL: Alert and oriented x 3. NAD EYES: EOMI. Anicteric. HENT: Moist mucous membranes. No scleral icterus. No cervical lymphadenopathy. LUNGS: Clear to auscultation bilaterally. CARDIOVASCULAR: Regular rate and rhythm. ABDOMEN: Soft, non-tender +bs EXTREMITIES: No edema. Non-tender. SKIN: No rashes or lesions. Warm. NEUROLOGIC: No focal neurological deficits. CN II-XII grossly intact PSYCHIATRIC: Cooperative. Appropriate mood and affect [facility] Medical History Diverticulosis Hypothyroid Enteritis, Yersinia enterocolitica Surgical History H/O hernia repair Family History Maternal Grandmother Colon cancer Paternal Grandfather Colon polyp Mother No problems noted. Father No problems noted. Social History Housing: House Are you a primary child care centre manager to a significant other at home: No Do you presently have visiting nurse or other home services: No Alcohol intake: current Alcohol intake frequency: a few times a month Patient Tobacco Use Status: Never used Tobacco e-Cigarette/Vaping Use: Never Used service: No Current occupational status: employed Cognitive needs: No Hearing needs: No Vision needs: No Questionnaire PHQ-9 Over the last 2 weeks, how often have you been bothered by any of the following problems? 1. Little interest or pleasure in doing things: not at all 2. Feeling down, depressed, or hopeless: not at all 3. Trouble falling or staying asleep, or sleeping too much: not at all 4. Feeling tired or having little energy: not at all 5. Poor appetite or overeating: not at all 6. Feeling bad about yourself - or that you are a failure or have let yourself or your family down: not at all 7. Trouble concentrating on things, such as reading the newspaper or watching television: not at all 8. Moving or speaking so slowly that other people could have noticed. Or the opposite - being so fidgety or restless that you have been moving around a lot more than usual: not at all 9. Thoughts that you would be better off or of hurting yourself in some way: not at all Total score: 0 Depression Screening Interpretation: Negative Depression Screening Done: Yes 87956 - PHQ-9 Billing: Yes Source: Developed by Drs. Chase Ho, Anai Andrade, Ariel Eldridge and colleagues, with an educational laura from [employer]. Thrive Questionnaire Date Thrive assessed: 02/22/25 I am a: Patient Within the past 12 months, did the food you bought not last and you didn't have the money to get more?: Never true Within the past 12 months, did you worry whether your food would run out before you got money to buy more?: Never true Do you have trouble paying for medicines?: No Do you have trouble getting transportation to medical appointments?: No Do you have trouble paying your heating and electricity bill?: No Do you have trouble taking care of your child, family member or friend?: No Do you have trouble with day-to-day activities such as bathing, preparing meals, shopping, managing finances, etc.?: No Are you currently unemployed and looking for a job?: No Are you interested in more education?: No THRIVE Score: 0 AUDIT C Alcohol Use Questionnaire (AUDIT-C) 1. How often do you have a drink containing alcohol?: Monthly or less 2. How many drinks containing alcohol do you have on a typical day when you are drinking?: 1 or 2 3. How often do you have six or more drinks on one occasion?: Less than monthly Total Score: 2 MARYCRUZ-7 AMB Questionnaire MARYCRUZ-7 Date MARYCRUZ - 7 assessed: 02/22/25 Feeling nervous, anxious, or on edge: 0 = Not at all Not being able to stop or control worryin = Not at all Worrying too much about different things: 0 = Not at all Trouble relaxin = Not at all Being so restless that it is hard to sit still: 0 = Not at all Becoming easily annoyed or irritable: 0 = Not at all Feeling afraid as if something awful might happen: 0 = Not at all Total MARYCRUZ-7 score (0-4 normal; 5-9 mild; 10-14 moderate; 15-21 severe): 0 Source: Developed by Drs. Chase Ho, Anai Andrade, Ariel Eldridge and colleagues, with an educational laura from [employer]. Physical exam (Primary Care) Tobacco/Smoking Status: Tobacco use Status Tobacco use date assessed 12/28/24 02/22/25 08:37 Patient Tobacco Use Status Never used Tobacco 02/22/25 08:37 e-Cigarette/Vaping Use Never Used 02/22/25 08:37 Depression Screening Interpretation: Negative Thrive Assessment: Date of Thrive Assessment Date Thrive assessed 12/28/24 02/22/25 08:37 Coding Level of Care Code Est Pt Level 3 (87749) Diagnoses Left axillary pain M79.622 Additional Codes PHQ-9 - 54947 - PHQ-9 Billing: Yes ([id number]) Assessment & Plan Assessment & Plan (1) Left axillary pain: Code(s): M79.622 - Pain in left upper arm Category: Medical Plan Left axillary pain. minimal fullness. likely nerve impingment but us axilla to rule out LN Labs reviewed Orders: Orders Thyroid Peroxidase Antibodies 6 Months R94.6 - Abnormal results of thyroid function studies US chest Today M79.622 - Pain in left upper arm TSH reflex Free T4 6 Months R94.6 - Abnormal results of thyroid function studies
[2025-02-22 08:39] VITALS: BP 118/70; PULSE 61; TEMP 36.6; O2SAT 99; BMI 23.2
== END 2025-02-22 11:54 | disposition home or self-care (01) ==
LOC: HO.HMCHD 08:26
PROVIDERS: PCP Internal Medicine; Visit Provider Internal Medicine
DX: M79.622 Pain in left upper arm (principal)

== ENCOUNTER → 2025-02-22 08:26 | Outpatient (BNVA) | payer BC, SELFPAY | PROVIDERS: PCP Internal Medicine; Visit Provider Internal Medicine | DX: M79.622 Pain in left upper arm (principal); E55.9 Vitamin D deficiency, unspecified; E03.9 Hypothyroidism, unspecified; Z13.31 Encounter for screening for depression; Z13.39 Encounter for screening examination for other mental health and behavioral disorders | CPT/HCPCS: 96127 ==

== ENCOUNTER 2025-07-26 13:02 | Outpatient (REF) | payer BC, SELFPAY ==
--- NOTE | ~2025-07-26 | US_ITS ---
Examination: US Extremity Nonvas Limited Lt Technique: Grayscale and color Doppler imaging was performed in the left axillary region. INDICATION: Left axillary pain. Prior: None FINDINGS: There are small normal-appearing lymph nodes in the left axilla without evidence of hyperplastic changes or architectural distortion. Imaging performed in the region where the patient complains of pain demonstrates Doppler flow within axillary vessels but no abnormal mass or fluid collection. US/US Extremity Nonvas Limited LT IMPRESSION: No anatomic abnormality in the left axilla.. Electronically signed by: Michel Abreu MD 07/26/2025 01:25 PM TASH
--- OUTSIDE RECORDS SUMMARY | 2025-07-26 14:50 | XMS_ITS | Clinical Summary ---
Author Organization [facility] Address [address] [place] [phone] Phone Care Team Providers Care Opticianry Teacher Name Role Phone Unavailable Primary Care Provider [...] of 2 - 13+ 2-dose series) 02/25/2001 HPV Vaccines (1 - 3-dose SCDM series) 02/25/2015 Influenza Vaccines (#1) 2025 COVID-19 Vaccine (1 - 2025-26 season) 2025 HIB Vaccines Completed 09/29/1989 IPV Vaccines Completed 02/11/1993, 09/09, 1988, Additional history exists MMR Vaccines Completed 04/14/1999, 05/26/1989 Hepatitis B Vaccines Completed 11/02/1999, 05/14/1999, 04/14/1999 Meningococcal Vaccine Completed 02/21/2006 Hepatitis A Vaccines Aged Out No long er eligible based on patient's age to complete this topic Men B Vaccine Aged Out No longer elig ible based on patient's age to complete this topic Pneumococcal Vaccine Aged Out No long er eligible based on patient's age to complete this topic
--- OUTSIDE RECORDS SUMMARY | 2025-07-26 14:50 | XMS_ITS | Encounter Summary ---
Author Organization [facility] Address [address] [place] [phone] Phone Care Team Providers Care Necktie Maker Name Role Phone Bing Martin MD Primary Care Provider Encounter Details Date Type Department Care Team (Late st Contact Info) Description 03/24/2017 Conversion Encounter [facility] [address] [place] [address] Social History Tobacco Use Types Packs/Day Years [...] on filedocumented in this encounter Care Teams Necktie Maker Relationship Specialty Start Date End Date Bing Martin MD [address] [place] [address] PCP - General 03/18/17 11/07/22 documented as of this encounter
== END 2025-07-26 13:03 | disposition home or self-care (01) ==
LOC: HO.HMGCX 13:02
PROVIDERS: PCP Internal Medicine; Visit Provider Internal Medicine
DX: M79.622 Pain in left upper arm (principal)
CPT/HCPCS: 76882

== ENCOUNTER → 2025-07-26 13:04 | Outpatient (BNV) | payer BC, SELFPAY | PROVIDERS: PCP Internal Medicine; Visit Provider Radiology Diagnostic Radiology | DX: M79.622 Pain in left upper arm (principal) | CPT/HCPCS: 76882 ==